=== PATIENT | female | born 1980 | race Caucasian/White ===

== ENCOUNTER 2020-01-30 10:27 | Outpatient (CLI) | payer OTHER ==
[2020-01-30 12:53] LABS: BASOPHILS % (AUTO) 0.3 %; EOSINOPHILS # (AUTO) 0.1 10^3/uL (0.0-0.7); EOSINOPHILS % (AUTO) 0.9 %; HGB - HEMOGLOBIN 12.7 g/dL (12.0-16.0); LYMPHOCYTES % (AUTO) 29.1 %; MEAN CORPUSCULAR HGB CONC 31.3 g/dL (32.0-36.0); MEAN CORPUSCULAR VOLUME 95.8 fL (81.0-99.0); MEAN PLATELET VOLUME 9.5 fL (7.9-10.8); MONOCYTES # (AUTO) 0.6 10^3/uL (0.0-1.0); NEUTROPHILS % (AUTO) 60.4 %; PLT - PLATELET COUNT 212 10^3/uL (130-450); RED BLOOD COUNT 4.24 10^6/uL (4.20-5.40); RED CELL DISTRIBUTION WIDTH 12.8 % (12.0-15.0); WHITE BLOOD COUNT 6.7 x10^3/uL (4.8-10.8)
== END 2020-01-30 10:28 | disposition home or self-care (01) ==
LOC: LAB 10:27
PROVIDERS: ATTEND Obstetrics & Gynecology
DX: Z01.812 Encounter for preprocedural laboratory examination (principal); N80.9 Endometriosis, unspecified
CPT/HCPCS: 85025; 86850; 86900; 86901

== ENCOUNTER 2020-02-01 07:29 | Inpatient (IN) | payer OTHER ==
[~2020-02-01 07:29] MED LIST: LACTATED RINGERS 1,000 ML IV ONE
[2020-02-01] MEDS ORDERED: CEFAZOLIN SODIUM IN 0.9 % NACL 2 GM/100 ML BAG IV ONE (07:37)
[2020-02-01 07:46] LABS: HCG UR QUAL NEGATIVE
--- NOTE | 2020-02-01 07:49 | ANESTHESIA ---
Pre-Anesthesia VS, & Labs - Diagnosis endometriosis - Procedure Total vaginal hysterectomy, bilat salpigectomy Height 5.75 in Weight (kg) 98.2 kg Home Medications and Allergies Home Medications: Ambulatory Orders No122/Iron/Folic Acid [ Multi Tablet] 1 each PO 01/27/20 Levonorgestrel 20 Mcg/24H [Mirena] 1 each IY 12/01/19 Loratadine [Claritin] 10 mg PO 12/01/19 PARoxetine [Paxil] 10 mg PO DAILY 12/01/19 No122/Iron/Folic Acid [ Multi Tablet] 1 each PO 01/27/20 Allergies/Adverse Reactions: Allergies Allergy/AdvReac Type Severity Reaction Status Date / Time shellfish derived Allergy Nausea Verified 01/27/20 15:19 hydrocodone AdvReac Nausea Verified 01/27/20 15:19 Anes History & Medical History - Medical History Cardiovascular: reports: None Pulmonary: reports: Sleep apnea, CPAP use Gastrointestinal: reports: None Urinary: reports: Other Musculoskeletal: reports: None Endocrine/Autoimmune: reports: Other Skin: reports: None - Surgical History Gynecologic: Dilation and currettage, Other Plan Anesthesia Type: General Consent for Procedure(s) Verified and Reviewed: Yes
--- NOTE | 2020-02-01 08:01 | ANESTHESIA ---
Pre-Anesthesia VS, & Labs - Diagnosis endometriosis Height 5.75 in Weight (kg) 98.2 kg Home Medications and Allergies Home Medications: Ambulatory Orders No122/Iron/Folic Acid [ Multi Tablet] 1 each PO 01/27/20 Levonorgestrel 20 Mcg/24H [Mirena] 1 each IY 12/01/19 Loratadine [Claritin] 10 mg PO 12/01/19 PARoxetine [Paxil] 10 mg PO DAILY 12/01/19 No122/Iron/Folic Acid [ Multi Tablet] 1 each PO 01/27/20 Allergies/Adverse Reactions: Allergies Allergy/AdvReac Type Severity Reaction Status Date / Time shellfish derived Allergy Nausea Verified 01/27/20 15:19 hydrocodone AdvReac Nausea Verified 01/27/20 15:19 Anes History & Medical History - Medical History Cardiovascular: reports: None Pulmonary: reports: Sleep apnea, CPAP use Gastrointestinal: reports: None Urinary: reports: Other Musculoskeletal: reports: None Endocrine/Autoimmune: reports: Other Skin: reports: None - Surgical History Gynecologic: Dilation and currettage, Other
--- NOTE | 2020-02-01 08:03 | ANESTHESIA ---
Pre-Anesthesia VS, & Labs - Diagnosis endometriosis - Procedure vaginal hysterectomy Vital Signs: Temp Pulse Resp BP Pulse Ox 36.2 C L 70 16 122/81 H 98 02/01/20 07:36 02/01/20 07:36 02/01/20 07:36 02/01/20 07:36 02/01/20 07:36 Height 5.75 in Weight (kg) 98.2 kg - NPO >8 hours - Is Patient ?: No Home Medications and Allergies Home Medications: Ambulatory Orders No122/Iron/Folic Acid [ Multi Tablet] 1 each PO 01/27/20 Loratadine [Claritin] 10 mg PO 12/01/19 PARoxetine [Paxil] 10 mg PO DAILY 12/01/19 No122/Iron/Folic Acid [ Multi Tablet] 1 each PO 01/27/20 Allergies/Adverse Reactions: Allergies Allergy/AdvReac Type Severity Reaction Status Date / Time shellfish derived Allergy Nausea Verified 01/27/20 15:19 hydrocodone AdvReac Nausea Verified 01/27/20 15:19 Anes History & Medical History - Anesthetic History Anesthesia Complications: reports: No previous complications Family history of Anesthesia Complications: Denies Family history of Malignant Hyperthermia: Denies - Medical History Cardiovascular: reports: None Pulmonary: reports: Sleep apnea, CPAP use Gastrointestinal: reports: None Urinary: reports: None, Other Neuro: reports: None Musculoskeletal: reports: None Endocrine/Autoimmune: reports: None, Other Blood Disorders: reports: None Skin: reports: None Smoking Status: Never smoker Psychosocial: reports: Depression - Surgical History Gynecologic: Dilation and currettage, Other Exam General: Alert, Oriented x3, Cooperative, No acute distress Dental: WNL Mouth Openin Fingerbreadth Neck Mobility: Normal Mallampati classification: I Thyromental Distance: 4-6 cm Respiratory: Lungs clear, Normal breath sounds, No respiratory distress, No accessory muscle use Cardiovascular: Regular rate, Normal S1, Normal S2, No murmurs Abdomen: Normal bowel sounds, Soft, No tenderness, No hepatospenomegaly, No masses Extremities: No clubbing, No cyanosis, No edema, Normal pulses, No tenderness/swelling Neurological: Normal gait, Normal speech, Strength at 5/5 X4 ext, Normal tone, Sensation intact, Cranial nerves 3-12 NL, Reflexes 2+ Mental/Cognitive Status: Alert/Oriented X3, Normal for patient Cognitive Status: Within normal limits Plan Anesthesia Type: General Consent for Procedure(s) Verified and Reviewed: Yes Code Status: Attempt Resuscitation ASA classification: 2-Mild systemic disease Is this case an emergency?: No
[2020-02-01] MEDS ORDERED: LIDOCAINE 1% 50 ML MDV ONE (08:43)
[2020-02-01] MEDS ORDERED: VASOPRESSIN 20 UNIT/ML VIAL ONE (08:44)
--- NOTE | 2020-02-01 08:59 | PHARMACY PROGRESS NOTE ---
- Best Possible Medication History Admit Date and Time: 02/01/20 0729 Processed by: Pharmacy Medication History completed: Yes Secondary Source(s): Pharmacy records, Insurance records As the person ultimately responsible for medication therapy, providers are able to order a medication from an existing home medication list in [facility] via the "Reconcile Routine" prior to Confirmation of that medication by mining support worker. Such practice is discouraged except when the physician, in their clinical judgment, deems that a medical need exists for a medication without regard to previous use.
[2020-02-01] MEDS ORDERED: BUPIVACAINE 0.25% PF 30 ML VIAL ONE (09:04)
[2020-02-01] MEDS ORDERED: SODIUM CHLORIDE 0.9% 20 ML ONE (09:04)
[2020-02-01] MEDS ORDERED: VASOPRESSIN 20 UNIT/ML VIAL IVP ONE (09:50)
[2020-02-01] MEDS ORDERED: LACTATED RINGERS 1,000 ML IV ONE (11:50)
[2020-02-01] MEDS ORDERED: HYDROmorphone 0.5 MG/0.5 ML SYRINGE IVP PRN (11:50)
[2020-02-01] MEDS ORDERED: KETOROLAC 15 MG/ML VIAL ONE (11:54)
[2020-02-01] MEDS ORDERED: ACETAMINOPHEN 500 MG TABLET PO SCH (12:00)
[2020-02-01] MEDS: HYDROmorphone 1 MG/ML CARPUJECT ONE ×3 (12:05→12:20)
--- NOTE | 2020-02-01 12:05 | OPERATIVE REPORT ---
Operative Report - General Admit Date: 02/01/20 Procedure Date: 02/01/20 Planned Procedure: total vaginal hysterectomy, bilateral salpingectomy, cystoscopy Pre-Op Diagnosis: endometriosis, chronic pelvic pain Procedure Performed: same as above Post Op Diagnosis: same as above - Procedure Note Primary Surgeon: Celine Hernandez Secondary Surgeon: Maricarmen Goodwin Anesthesia Provider: Dr. Billings Anesthesia Technique: General ET tube Pathology: uterus with cervix and bilateral fallopian tubes IV Fluids (mL): 1,000 Estimated Blood Loss (mL): 200 Urine Output (mL): 50 Indications: chronic pelvic pain Findings: small mobile anteverted uterus, normal appearing bilateral fallopian tubes removed, left ovary visualized and normal, right ovary not seen Complications: none - Other Other Information/Narrative: Procedure: The patient was taken to the operating room. After general anesthesia was found to be adequate the patient was placed in the high dorsal lithotomy position using yellow fin stirrups and an exam under anesthesia was performed with findings of a small anteverted uterus, mobile, normal arch, mild posterior wall vaginal prolapse. She was then prepped and draped in the usual sterile fashion and a surgical time out was performed. A weighted speculum was placed into the vagina, and the cervix grasped with a thyroid-Yogesh clamps. The cervix was then injected circumferentially with vasopressin 20 units diluted in 29 ml of normal saline. The cervix was circumferentially incised with the bovie. The anterior vaginal mucosa was sharply dissected off of the cervix but a plane was not identified into the vesico-uterine space. Attention was turned to the posterior cul-de-sac which was entered into sharply without difficulty using heavy [place] scissors. The cul-de-sac was digitally explored with no evidence of adhesion, and the long weighted speculum was replaced in the cul-de-sac after tagging the peritoneum to the edge. At this point, a Adriana clamp was placed over the uterosacral ligaments on either side. These were then transected and suture ligated with #0 Vicryl. Hemostasis was assured. The cardinal ligaments, uterine arteries and broad ligament on each side were sequentially clamped, transected and ligated, with hemostasis assured at each pedicle. As the uterus descended, the anterior peritoneum was identified and entered sharply, allowing placement of a [place] retractor. A garza catheter was placed, draining clear yellow urine. Next, the left cornua was clamped with Adriana clamps, transected and the pedicle was secured with a free tie then suture ligated with excellent hemostasis from the pedicle. The left fallopian tube was noted to be bleeding from the mesosalpinx, so a Adriana clamp was placed around the fallopian tube and this was transected; the pedicle was secured with a free tie followed by a stitch. The right cornua was then clamped with a Adriana clamp, transected and similarly secured. The specimen was passed off the field. Hemostasis was maintained. The right fallopian tube was gently grasped with a ade and brought down to enable dissection. It was clamped with a Adriana and transected. The pedicle was secured with a free-tie followed by suture ligation, and good hemostasis was observed. The left ovary was seen and normal appearing. The right ovary was not visualized. The vaginal cuff was closed horizontally with multiple [id number] stitches of #0 Vicryl including the underlying peritoneum in the stitches. Each side of the tagged uterosacral ligaments were tied together centrally for postoperative support. The cuff was copiously irrigated and noted to be hemostatic. All instruments were removed from the vagina. Cystoscopy was performed, and revealed an intact bladder with no evidence of injury and bilateral ureteral jets. A pelvic exam performed at the conclusion of the procedure revealed no retained foreign objects in the vagina. The patient was taken out of dorsal lithotomy position and awakened from general anesthesia without difficulty. The patient was taken to the PACU in stable condition. Sponge, lap, needle and instrument counts were correct times two. No complications were appreciated.
[2020-02-01] MEDS: fentaNYL 100 MCG/2 ML VIAL ONE ×3 (12:30→12:45)
[2020-02-01] MEDS ORDERED: ACETAMINOPHEN 1,000 MG/100 ML 100 ML IV ONE (12:41)
[2020-02-01] MEDS: ONDANSETRON 4 MG/2 ML VIAL IVP PRN ×2 (13:00→20:55)
[2020-02-01] MEDS ORDERED: ONDANSETRON 4 MG/2 ML VIAL ONE (13:03)
[2020-02-01] MEDS: oxyCODONE 5 MG TABLET PO PRN ×2 (13:56→20:54)
[2020-02-01] MEDS: LACTATED RINGERS 1,000 ML IV SCH ×2 (14:03→17:29)
[2020-02-01] MEDS ORDERED: DEXAMETHASONE 4 MG/ML VIAL IVP ONE (16:19)
[2020-02-01] MEDS ORDERED: ROCURONIUM 50 MG/5 ML VIAL IVP ONE (16:19)
[2020-02-01] MEDS ORDERED: ONDANSETRON 4 MG/2 ML VIAL IVP ONE (16:19)
[2020-02-01] MEDS ORDERED: fentaNYL 100 MCG/2 ML VIAL IVP ONE (16:19)
[2020-02-01] MEDS ORDERED: fentaNYL 250 MCG/5 ML VIAL IVP ONE (16:19)
[2020-02-01] MEDS ORDERED: LIDOCAINE-MPF 2% 5 ML VIAL IM ONE (16:19)
[2020-02-01] MEDS ORDERED: PROPOFOL 200 MG/20 ML VIAL IVP ONE (16:19)
[2020-02-01] MEDS ORDERED: HYDROmorphone 1 MG/ML CARPUJECT IVP ONE (16:19)
[2020-02-01] MEDS: ACETAMINOPHEN 500 MG TABLET PO SCH (16:36)
[2020-02-01] MEDS: KETOROLAC 30 MG/ML VIAL IVP SCH (18:19)
[2020-02-01] MEDS: DOCUSATE SODIUM 100 MG CAPSULE PO SCH (20:54)
[2020-02-02] MEDS: ACETAMINOPHEN 500 MG TABLET PO SCH ×2 (00:10→05:43)
[2020-02-02] MEDS: KETOROLAC 30 MG/ML VIAL IVP SCH ×2 (00:11→05:43)
[2020-02-02] MEDS: LACTATED RINGERS 1,000 ML IV SCH (03:12)
[2020-02-02 05:59] LABS: BASOPHILS % (AUTO) 0.2 %; HGB - HEMOGLOBIN 10.5 g/dL (12.0-16.0); LYMPHOCYTES # (AUTO) 1.3 10^3/uL (1.5-3.5); LYMPHOCYTES % (AUTO) 9.6 %; MEAN CORPUSCULAR HEMOGLOBIN 31.3 pg (27.0-31.0); MEAN CORPUSCULAR HGB CONC 32.2 g/dL (32.0-36.0); MEAN PLATELET VOLUME 9.4 fL (7.9-10.8); MONOCYTES # (AUTO) 0.9 10^3/uL (0.0-1.0); MONOCYTES % (AUTO) 6.7 %; NEUTROPHILS # (AUTO) 11.3 10^3/uL (1.5-6.6); NEUTROPHILS % (AUTO) 82.9 %; PLT - PLATELET COUNT 191 10^3/uL (130-450); RED BLOOD COUNT 3.36 10^6/uL (4.20-5.40); RED CELL DISTRIBUTION WIDTH 12.5 % (12.0-15.0); WHITE BLOOD COUNT 13.7 x10^3/uL (4.8-10.8)
--- NOTE | 2020-02-02 06:59 | PROVIDER PROGRESS NOTE ---
Subjective - Prog Note Date Prog Note Date: 02/02/20 Prog Note Time: 06:55 - Subjective Pt reports feeling: Improved Subjective: Pt doing well POD#1 from TVH/BS/cysto. Ambulated x 1 without difficulty. Tolerating light foods/snacks without nausea, but wasn't hungry for dinner last night; hungry this AM. Denies emesis. Pain well controlled with toradol and tylenol. Voiding to garza overnight, just removed. Passing flatus. No other acute concerns. Objective - Vital Signs/Intake & Output Vital Signs: Vital Signs x48h Temp Pulse Resp BP Pulse Ox 02/02/20 05:20 98.2 F 103 H 16 100/49 L 94 02/01/20 23:40 98.8 F 100 16 105/57 L 92 Intake & Output: Intake & Output 01/30/20 01/31/20 02/01/20 02/02/20 23:59 23:59 23:59 23:59 Intake Total 2443.333 1150 Output Total 800 3300 Balance 1643.333 -2150 - Objective General Appearance: positive: No acute distress Abdomen: positive: Non-tender, No distention (soft) Extremities: positive: Non-tender Neurologic/Psychiatric: positive: Oriented x3 - Lab Results Fish Bones: 02/02/20 05:17 Other Labs: Lab Results x24hrs 02/02/20 02/01/20 Range/Units 05:17 07:30 WBC 13.7 H (4.8-10.8) x10^3/uL RBC 3.36 L (4.20-5.40) 10^6/uL Hgb 10.5 L (12.0-16.0) g/dL Hct 32.6 L (37.0-47.0) % MCV 97.0 (81.0-99.0) fL MCH 31.3 H (27.0-31.0) pg MCHC 32.2 (32.0-36.0) g/dL RDW 12.5 (12.0-15.0) % Plt Count 191 (130-450) 10^3/uL MPV 9.4 (7.9-10.8) fL Neut # (Auto) 11.3 H (1.5-6.6) 10^3/uL Lymph # (Auto) 1.3 L (1.5-3.5) 10^3/uL [place] # (Auto) 0.9 (0.0-1.0) 10^3/uL Eos # (Auto) 0.0 (0.0-0.7) 10^3/uL Baso # (Auto) 0.0 (0.0-0.1) 10^3/uL Absolute Nucleated RBC 0.00 x10^3/uL Nucleated RBC % 0.0 /100WBC Ur Specific [place] 1.025 (1.002-1.030) Urine HCG, Qual NEGATIVE Assessment/Plan - Problem List (1) Postoperative state Impression: 39 yo woman POD#1 s/p TVH/BS/cysto, doing very well. VS wnl, exam benign. UOP 2.5 ml/kg/h overnight. Hct 32 postop. Awaiting DTV. Once met, will discharge home this AM. Rvwd postop recovery instructions, reasons to seek urgent care.
--- NOTE | 2020-02-02 07:03 | DISCHARGE SUMMARY ---
"Discharge Summary Admit Date: 02/01/20 Discharge Date: 02/02/20 Discharging Provider: Celine Hernandez Code Status: Attempt Resuscitation Condition at Discharge: Good Discharge Disposition: 01 Home, Self Care Discharge Facility Name: [facility] - DIAGNOSES Admission Diagnoses: endemetriosis, chronic pelvic pain Discharge Diagnoses with Status of Each Condition: same as above, s/p total vaginal hysterectomy - HPI History of Present Illness: 39 yo woman with endometriosis admitted for planned hysterectomy. - CONSULTS | PROCEDURES Consultations: Anesthesia Procedures: Total vaginal hysterectomy, bilateral salpingectomy, cystoscopy - HOSPITAL COURSE Hospital Course: Underwent uncomplicated TVH/BS/cysto. On POD#1 garza catheter was removed and patient met due to void. At time of discharge, pt was ambulating, tolerating regular diet and pain was well controlled with oral medications. - ALLERGIES Allergies/Adverse Reactions: Allergies Allergy/AdvReac Type Severity Reaction Status Date / Time shellfish derived Allergy Nausea Verified 01/27/20 15:19 hydrocodone AdvReac Nausea Verified 01/27/20 15:19 - MEDICATIONS Home Medications: Ambulatory Orders Medication Instructions Recorded Confirmed Loratadine [Claritin] 10 mg PO DAILY 12/01/19 02/01/20 PARoxetine [Paxil] 20 mg PO DAILY 12/01/19 02/01/20 No122/Iron/Folic Acid 1 each PO DAILY 01/27/20 02/01/20 [ Multi Tablet] - PHYSICAL EXAM AT DISCHARGE General Appearance: positive: No acute distress (see progress note for full exam) Neurologic/Psychiatric: positive: Oriented x3 - LABS Result Diagrams: 02/02/20 05:17 - FOLLOW UP Follow Up: As scheduled at [facility]. Call [phone] with any concerns. - TIME SPENT Time Spent in Discharge (Minutes): 20"
[2020-02-02] MEDS: DOCUSATE SODIUM 100 MG CAPSULE PO SCH (08:37)
[2020-02-02 10:09] VITALS: BP 105/54
== END 2020-02-02 10:15 | disposition home or self-care (01) | DRG 983 ==
LOC: MS3 07:29 → MS2 11:53
PROVIDERS: ADMIT Obstetrics & Gynecology; ATTEND Obstetrics & Gynecology
PROC: 0UT77ZZ Resection of Bilateral Fallopian Tubes, Via Natural or Artificial Opening (ICD-10-PCS; 2020-02-01)
PROC: 0TJB8ZZ Inspection of Bladder, Via Natural or Artificial Opening Endoscopic (ICD-10-PCS; 2020-02-01)
PROC: 0UT97ZZ Resection of Uterus, Via Natural or Artificial Opening (ICD-10-PCS; principal; 2020-02-01 08:45)
DX: R10.2 Pelvic and perineal pain (principal); N80.9 Endometriosis, unspecified; G47.30 Sleep apnea, unspecified; F32.9 Major depressive disorder, single episode, unspecified
CPT/HCPCS: 36415; 81025; 85025